=== PATIENT | female | born 1980 | race Caucasian/White ===

== ENCOUNTER 2025-09-22 12:43 | Outpatient (OUT) | payer BC, SELFPAY ==
--- OUTSIDE RECORDS SUMMARY | 2025-09-15 09:15 | XMS_ITS | Encounter Summary ---
Author Organization [facility] Address [address], [address] [place] [address] Care Team Providers Care Plasma Center Nurse Name Role Phone José Luis Maurice MD Primary Care Provider [phone] Reason for Referral * Other (Routine) - AuthorizedSpecialtyDiagnoses / ProceduresReferred By Contact Referred To ContactRadiology Diagnoses Screening mammogram, encounter for Procedures [facility] EDILSON DIGITAL SCREEN BILATERAL Indira Dillon APRN - CNM [address] [place] [address] [address] [place] [address] Phone: tel: fax: Referral IDStatusReasonStart DateExpiration DateVisits RequestedVisits [id number]/12/[id number] Reason for Visit * ReasonCommentsGynecologic ExamYearly exam. Last pap 09/09/2024 negative, HPV not detected. C/O abdominal cramps off and on, symptoms prior to and after period. Encounter Details DateTypeDepartmentCare Team (Latest Contact Info)Uvwfbqpvewl00/12/2025 9:15 AM ESTOffice Visit [facility] Part of [address] [place] [address] Indira Dillon APRN - CNM [address] [place] [address] [address] [place] [address] Encounter for annual routine gynecological examination (Primary Dx); Screening mammogram, encounter for; Abdominal cramps Social History Tobacco UseTypesPacks/DayYears UsedDateSmoking Tobacco: FormerSmokeless Tobacco: NeverAlcohol UseStandard Drinks/WeekCommentsNot Currently0 (1 standard drink = 0.6 oz pure alcohol)rarelyOverall Financial Resource Strain (CARDIA)AnswerDate RecordedHow hard is it for you to pay for the very basics like food, housing, medical care, and heating?Not hard at all09/09/2024HQ-2AnswerDate RecordedPHQ-9 Total Stufe26711/15/2024PRAPARE - TransportationAnswerDate RecordedLack of Transportation (Medical)Not on file09/09/2024In the past 12 months, has lack of transportation kept you from meetings, work, or from getting things needed for daily living?No09/09/2024Housing Stability Vital SignAnswerDate RecordedIn the last 12 months, was there a time when you were not able to pay the mortgage or rent on time?No09/15/2025In the past 12 months, how many times have you moved where you were living?t any time in the past 12 months, were you homeless or living in a [place] (including now)?No09/15/2025Hunger Vital Sign AnswerDate RecordedWithin the past 12 months, you worried that your food would run out before you got the money to buymore.Never true09/15/2025Within the past 12 months, the food you bought just didn't last and you didn't have money to get more.Never true09/15/2025PRAPARE - TransportationAnswerDate RecordedIn the past 12 months, has lack of transportation kept you from medical appointments or from getting medications?No09/15/2025In the past 12 months, has lack of transportation kept you from meetings, work, or from getting things needed for daily living?No09/15/2025HC UtilitiesAnswerDate RecordedIn the past 12 months has the electric, gas, oil, or water company threatened to shut off services in your home?No09/15/2025CommentsNoSex and Gender InformationValueDate RecordedSex Assigned at BirthNot on fileLegal NviZegaeq22/13/2013 1:22 AM EST Gender IdentityNot on fileSexual OrientationNot on filedocumented as of this encounter Last Filed Vital Signs Vital SignReadingTime TakenCommentsBlood Jlmnxege064/7009/15/2025 9:23 AM EST Pulse--Temperature--Respiratory Rate--Oxygen Saturation--Inhaled Oxygen Concentration--Sstkpt39.4 kg (181 lb 9.6 oz)09/15/2025 9:23 AM LGFIdfdiq601.1 cm (5' 5 )09/15/2025 9:23 AM ESTBody Mass Index30.22111/15/2024 9:23 AM EST documented in this encounter Progress Notes * Indira Dillon, LINE DANCER - CNM - 09/15/2025 9:31 AM EST YEARLY PHYSICAL Date of service: 09/15/2025 Ese Arndt Is a 45 y.o. , female PT's PCP is: José Luis Maurice MD : 1980 Subjective: Patient's last menstrual period was 09/04/2025. Are your menses regular: yes OB History Para Term AB Living 4 4 4 4 SAB IAB Ectopic Molar Multiple Live Births # Outcome Date GA Lbr Simón/2nd Weight Sex Type Anes PTL Lv 4 Term 2005 40w0d M Vag-Spont 3 Term 2004 40w0d M Vag-Spont 2 Term 2002 40w0d M Vag-Spont 1 Term 1996 40w0d M Vag-Spont Social History Tobacco Use Smoking Status Former Smokeless Tobacco Never Social History Substance and Sexual Activity Alcohol Use Not Currently Comment: rarely Family History Problem Relation Age of Onset Diabetes Mother oral medication and diet control High Blood Pressure Mother Obesity Mother High Cholesterol Mother Thyroid Disease Mother Deep Vein Thrombosis Mother Heart Failure Father stents High Cholesterol Sister Thyroid Disease Sister Cancer Sister brain tumor Heart Failure Maternal Grandmother copd, stents Other Other MGGM breast cancer. No family h/ oovarian cancer. Any family history of breast or ovarian cancer: No Any family history of blood clots: No Allergies: Patient has no known allergies. Current Outpatient Medications: Multiple Vitamins-Minerals (THERAPEUTIC MULTIVITAMIN-MINERALS) tablet, Take 1 tablet by mouth daily, Disp: , Rfl: Social History Substance and Sexual Activity Sexual Activity Yes Partners: Male control/protection: Surgical, Female Sterilization Any bleeding or pain with intercourse: No Last Yearly date: 09/09/2024 Last pap date : Date of last Cervical Cancer screen (HPV or PAP): 09/09/2024 results: negative Last HPV date and results: 09/09/2024 negative Has pt ever had an abnormal:No IF yes result and date: never Mammogram Result (most recent): No results found for this or any previous visit from the past 3650 days. 2020 [place] DEXA Result (most recent): No results found for this or any previous visit from the past 3650 days. Last colorectal screen- type:never date never results never Do you do self breast exams: Yes Pt requests jr. systems administrator: No Past Medical History: Diagnosis Date Migraines Thyroid disease hypothyroidism Past Surgical History: Procedure Laterality Date DILATION AND CURETTAGE OF UTERUS N/A 02/13/2021 DILATATION AND CURETTAGE HYSTEROSCOPY CAUTERY ABLATION-NOVASURE performed by Mary Lou Dickerson DO at [facility] OR ENDOMETRIAL ABLATION INTRAUTERINE DEVICE REMOVAL N/A 02/13/2021 UTERUS IUD REMOVAL performed by Mary Lou Dickerson DO at [facility] OR SALPINGECTOMY Bilateral SALPINGECTOMY Bilateral 02/13/2021 SALPINGECTOMY LAPAROSCOPIC performed by Mary Lou Dickerson DO at [facility] OR THROAT SURGERY salivary stone Family History Problem Relation Age of Onset Diabetes Mother oral medication and diet control High Blood Pressure Mother Obesity Mother High Cholesterol Mother Thyroid Disease Mother Deep Vein Thrombosis Mother Heart Failure Father stents High Cholesterol Sister Thyroid Disease Sister Cancer Sister brain tumor Heart Failure Maternal Grandmother copd, stents Other Other MGGM breast cancer. No family h/ oovarian cancer. Chief Complaint Patient presents with Gynecologic Exam Yearly exam. Last pap 09/09/2024 negative, HPV not detected. C/O abdominal cramps off and on, symptoms prior to and after period. PE: Vital Signs Blood pressure 126/70, height 1.651 m (5' 5 ), weight 82.4 kg (181 lb 9.6 oz), last menstrual period 09/04/2025, not currently . Estimated body mass index is 30.22 kg/m?? as calculated from the following: Height as of this encounter: 1.651 m (5' 5 ). Weight as of this encounter: 82.4 kg (181 lb 9.6 oz). Labs: Results for orders placed or performed in visit on 09/15/25 POCT Urinalysis Dipstick no Micro Result Value Ref Range Color, UA pale yellow Clarity, UA clear Glucose, UA POC negative mg/dL Bilirubin, UA negative Ketones, UA negative mg/dL Spec Grav, UA 1.010 Blood, UA POC trace pH, UA 7.0 Protein, UA POC negative mg/dL Urobilinogen, UA 0.2 mg/dL Leukocytes, UA negative Nitrite, UA negative PHQ-9 Total Score: 0 (09/15/2025 9:29 AM) NURSE: Sade TAFOYA HPI: here for annual farmworkers exam, c/o some pelvic pain, feels it is cycle related Review of Systems Constitutional: Negative. HENT: Negative for congestion. Respiratory: Negative for shortness of breath. Cardiovascular: Negative for chest pain. Gastrointestinal: Negative for abdominal pain. Genitourinary: Negative for dysuria. Musculoskeletal: Negative for back pain. Skin: Negative for rash. Neurological: Negative for headaches. Psychiatric/Behavioral: The patient is not nervous/anxious. Objective Lymphatic: no lymphadenopathy Heent: negative Cor: regular rate and rhythm, no murmurs Pul:clear to auscultation bilaterally- no wheezes, rales or rhonchi, normal air movement, no respiratory distress GI: Abdomen soft, non-tender. BS normal. No masses, No organomegaly Extremities: normal strength, tone, and muscle mass Breasts: Breast:normal appearance, no masses or tenderness Pelvic Exam: GENITAL/URINARY: External Genitalia: General appearance; normal, Hair distribution; normal, Lesions absent Urethral Meatus: Size normal, Location normal, Lesions absent, Prolapse absent Urethra: Fullness absent, Masses absent Bladder: Fullness absent, Masses absent, Tenderness absent, Cystocele absent Vagina: General appearance normal, Estrogen effect normal, Discharge absent, Lesions absent, Pelvicsupport normal Cervix: General appearance normal, Lesions absent, Discharge absent, Tenderness absent, Enlargementabsent, Nodularity absent Uterus: Size normal, Tenderness absent Adenexa: Masses absent, Tenderness absent Anus/Perineum: Lesions absent and Masses absent Assessment and Plan Assessment & Plan Screening mammogram, encounter for wellness Orders: [facility] ED[facility] DIGITAL SCREEN BILATERAL; Future Abdominal cramps Chronic, not at goal (unstable), continue current plan pending work up below Orders: POCT Urinalysis Dipstick no Micro Urinalysis; Future Culture, Urine; Future Encounter for annual routine gynecological examination wellness Return for farmworkers sono immediately following next menses. I am having Ese Arndt maintain her therapeutic multivitamin-minerals. She was also counseled on her preventative health maintenance recommendations and follow-up. There are no Patient Instructions on file for this visit. BRIGID Oneill CNM,09/15/2025 9:51 AM documented in this encounter Plan of Treatment DateTypeDepartmentCare Team (Latest Contact Info)Mnikzpwxqed09/23/2025 11:00 AM ESTAncillary Procedure [facility] Part [address] [place] [id number] Housekeeping Staff/us09/21/2026 9:45 AM ESTOffice Visit [facility] [address] [place], [place] [id number] Indira Dillon APRN - CNM [address] [place] [address] [address] [place], [place] [id number] AnnualNameTypePriorityAssociated DiagnosesOrder ScheduleMAM EDILSON DIGITAL SCREEN BILATERALImagingRoutine Screening mammogram, encounter for Expected: 09/15/2025, Expires: 11/15/2026documented as of this encounter Procedures Procedure NamePriorityDate/TimeAssociated DiagnosisCommentsPOCT URINALYSIS VWSUQHUGJcthjhr20/12/2025 9:48 AM EST Abdominal cramps documented in this encounter Results * POCT Urinalysis Dipstick no Micro (09/15/2025 9:48 AM EST)ComponentValueRef RangeTest MethodAnalysis TimePerformed AtPathologist SignatureColor, UApale yellowClarity, UAclearGlucose, UA POCnegativemg/dLBilirubin, UAnegative Ketones, UAnegativemg/dLSpec Grav, UA1.010Blood, UA POCtracepH, UA7.0Protein, UA POCnegativemg/dLUrobilinogen, UA0.2mg/dLLeukocytes, UAnegativeNitrite, UA negativeSpecimen (Source)Anatomical Location / LateralityCollection Method / VolumeCollection TimeReceived Time09/15/2025 9:48 AM EST Narrative Authorizing ProviderResult TypeResult StatusSubeatris VALLESOINT OF CARE TEST ORDERABLESFinal Result * Culture, Urine (09/15/2025 9:40 AM EST)ComponentValueRef RangeTest Method Analysis TimePerformed AtPathologist SignatureSpecimen Description.CLEAN CATCH URINE09/15/2025 9:40 AM [facility] LABSpecial Requests Site: Urine09/15/2025 9:40 AM [facility] LABCultureNO WSKNAA7409/15/2025 9:40 AM [facility] LABORATORIESSpecimen (Source)Anatomical Location / LateralityCollection Method / VolumeCollection TimeReceived Time UrineURINE SPECIMEN / Jnpywhs5009/15/2025 9:40 AM EST09/15/2025 11:37 AM EST Narrative Authorizing ProviderResult TypeResult StatusSubeatris Martinez CNM MICROBIOLOGY - GENERAL ORDERABLESFinal ResultPerforming OrganizationAddress City/State/ZIP CodePhone Number [facility] [address] [place] [address], [facility] [phone] [facility] HitchedPic [facility] [place] [id number], [facility] [phone] * (ABNORMAL) Urinalysis (09/15/2025 9:40 AM EST)ComponentValueRef RangeTest MethodAnalysis TimePerformed AtPathologist SignatureColor, UAYellowYellow 09/15/2025 9:40 AM [facility] LABTurbidity UAClearClear 09/15/2025 9:40 AM [facility] LABGlucose, UrNEGATIVE NEGATIVE mg/dL09/15/2025 9:40 AM [facility] LABBilirubin, TrzpaNVWWEXOEFOONHACD19/12/2025 9:40 AM [facility] Ketones, UrineNEGATIVENEGATIVE mg/dL09/15/2025 9:40 AM [facility] LABSpecific [place], UA<1.005(L)1.010 - 1.2075409/15/2025 9:40 AM [facility] LABUrine TniIZOFQLUGQCYLHZFJ89/12/2025 9:40 AM [facility] LABpH, Urine7.05.0 - 9.011 9:40 AM [facility] LABProtein, UANEGATIVENEGATIVE mg/dL09/15/2025 9:40 AM [facility] LABUrobilinogen, UrineNormal0.0 - 1.0 EU/dL09/15/2025 9:40 AM [facility] LABNitrite, Urine UWKVAKZIGICYZVRT06/12/2025 9:40 AM [facility] Leukocyte Esterase, QigdnYEJKLVRAZDSWHXMK12/12/2025 9:40 AM [facility] LABSpecimen (Source)Anatomical Location / LateralityCollection Method / VolumeCollection TimeReceived TimeUrineURINE SPECIMEN / Unknown 09/15/2025 9:40 AM EST09/15/2025 11:37 AM EST Narrative Authorizing ProviderResult TypeResult StatusSusan Daphney Dillon LINE DANCER - CNMURINE ORDERABLESFinal ResultPerforming OrganizationAddressCity/State/ZIP CodePhone Number [facility] [address] [place], [place] [address] [phone] documented in this encounter Visit Diagnoses Diagnosis Encounter for annual routine gynecological examination- Primary Screening mammogram, encounter for Abdominal cramps Abdominal pain, unspecified site documented in this encounter Care Teams Team MemberRelationshipSpecialtyStart DateEnd Date José Luis Maurice MD [address] [place] [address] PCP - GeneralFamily Rlsbawrv93/13/21documented as of this encounter
--- OUTSIDE RECORDS SUMMARY | 2025-09-15 10:58 | XMS_ITS | Encounter Summary ---
Author Organization [facility]adi White [facility] Address [address], [address] [place] [address] Care Team Providers Care Hybrid Technologist Name Role Phone José Luis Maurice MD Primary Care Provider [phone] Encounter Details DateTypeDepartmentCare Team (Latest Contact Info)Cvejtrwnnpq11/12/2025 10:58 AM EST - 09/15/2025 11:59 PM ESTHospital Encounter [facility] [address] [place], [place] [id number] Abdominal cramps Discharge Disposition: Home or Self Care Social History Tobacco UseTypesPacks/DayYears UsedDateSmoking Tobacco: FormerSmokeless Tobacco: NeverAlcohol UseStandard Drinks/WeekCommentsNot Currently0 (1 standard drink = 0.6 oz pure alcohol)rarelyOverall Financial Resource Strain (CARDIA)AnswerDate RecordedHow hard is it for you to pay for the very basics like food, housing, medical care, and heating?Not hard at all09/09/2024HQ-2AnswerDate RecordedPHQ-9 Total Selby91511/15/2024PRAPARE - TransportationAnswerDate RecordedLack of Transportation (Medical)Not on [...] were you homeless or living in a usp (including now)?No09/15/2025Hunger Vital Sign AnswerDate RecordedWithin the [...] RecordedIn the past 12 months has the [employer], [employer], oil, or water [employer] threatened to shut off services in your home?No09/15/2025CommentsNoSex and Gender InformationValueDate RecordedSex Assigned at BirthNot on fileLegal YstTkxsgp95/13/2013 1:22 AM EST Gender IdentityNot on fileSexual OrientationNot on filedocumented as of this encounter Medications at Time of Discharge MedicationSigDispense QuantityRefillsLast FilledStart DateEnd Date Multiple Vitamins-Minerals (THERAPEUTIC MULTIVITAMIN-MINERALS) tablet Take 1 tablet by mouth dailydocumented as of this encounter Plan of Treatment DateTypeDepartmentCare Team (Latest Contact Info)Kbbskskojfc43/23/2025 11:00 AM ESTAncillary Procedure [facility] Part of [address] [place] [address] Hand Stemmer/us09/21/2026 9:45 AM ESTOffice Visit [facility] Part [address] [place] [address] Indira Dillon, BRIGID - ALICIA [address] [place] [address] [place] [address] Annualdocumented as of this encounter Procedures Procedure NamePriorityDate/TimeAssociated DiagnosisCommentsURINALYSISRoutine 09/15/2025 9:40 AM EST Abdominal cramps CULTURE, FAMOWTytctra38/12/2025 9:40 AM EST Abdominal cramps documented in this encounter Results * (ABNORMAL) Urinalysis (09/15/2025 9:40 AM EST)ComponentValueRef RangeTest MethodAnalysis TimePerformed AtPathologist SignatureColor, UAYellowYellow 09/15/2025 9:40 AM [facility] LABTurbidity UAClearClear 09/15/2025 9:40 AM [facility] LABGlucose, UrNEGATIVE NEGATIVE mg/dL09/15/2025 9:40 AM [facility] LABBilirubin, NfeiyZEGZQRHENVLVRWKM69/12/2025 9:40 AM [facility] LAB Ketones, UrineNEGATIVENEGATIVE mg/dL09/15/2025 9:40 AM [facility] LABSpecific [place], UA<1.005(L)1.010 - 1.2440909/15/2025 9:40 AM [facility] LABUrine DouUWOBKFBAJMVQNLZN39/12/2025 9:40 AM [facility] LABpH, Urine7.05.0 - 9.011 9:40 AM [facility] LABProtein, UANEGATIVENEGATIVE mg/dL09/15/2025 9:40 AM [facility] LABUrobilinogen, UrineNormal0.0 - 1.0 EU/dL09/15/2025 9:40 AM [facility] LABNitrite, Urine JVJFRFXEDOAXHUJQ33/12/2025 9:40 AM [facility] Leukocyte Esterase, RiaiwWMIAMJPGJJDXTKOZ86/12/2025 9:40 AM [facility] LABSpecimen (Source)Anatomical Location / LateralityCollection Method / VolumeCollection TimeReceived TimeUrineURINE SPECIMEN / Unknown 09/15/2025 9:40 AM EST09/15/2025 11:37 AM EST Narrative Authorizing ProviderResult TypeResult StatusSubeatris GARRISONMURINE ORDERABLESFinal ResultPerforming OrganizationAddressCity/State/ZIP CodePhone Number [facility] [address] [phone] * Culture, Urine (09/15/2025 9:40 AM EST)ComponentValueRef RangeTest Method Analysis TimePerformed AtPathologist SignatureSpecimen Description.CLEAN CATCH URINE09/15/2025 9:40 AM [facility] LABSpecial Requests Site: Urine09/15/2025 9:40 AM [facility] LABCultureNO FTBYKY5509/15/2025 9:40 AM [facility] LABORATORIESSpecimen (Source)Anatomical Location / LateralityCollection Method / VolumeCollection TimeReceived Time UrineURINE SPECIMEN / Jrnpubt9409/15/2025 9:40 AM EST09/15/2025 11:37 AM EST Narrative Authorizing ProviderResult TypeResult StatusSubeatris Martinez CNM MICROBIOLOGY - GENERAL ORDERABLESFinal ResultPerforming OrganizationAddress City/State/ZIP CodePhone Number [facility] [address] [place] [address], [facility] [phone] [phone] documented in this encounter Visit Diagnoses Diagnosis Abdominal cramps Abdominal pain, unspecified site documented in this encounter Care Teams Team MemberRelationshipSpecialtyStart DateEnd Date José Luis Maurice MD [address] [place] [address] PCP - GeneralFamily Btkvwlut93/13/21documented as of this encounter
--- OUTSIDE RECORDS SUMMARY | 2025-09-22 12:46 | XMS_ITS | Clinical Summary ---
Author Organization [facility] Address [id number] [address] [place] [address] Care Team Providers Care Thermometer Maker Name Role Phone Unavailable Primary Care Provider Unavailabl e Social History Tobacco UseTypesPacks/DayYears UsedDateSmoking Tobacco: Never AssessedChildcare AnswerDate FifpshebUieztvhjgEurlctg50/12/2019EmploymentAnswerDate Recorded GvdenipumbNjivweu95/12/2019Purpose - LifeAnswerDate RecordedPurpose and direction in rjifJksmvsg76/11/2021CommentsUnknownSex and Gender InformationValueDate RecordedSex Assigned at BirthNot on fileLegal SexFemale 06/09/2015 11:34 AM EDTGender IdentityNot on fileSexual OrientationNot on file Plan of Treatment Health MaintenanceDue DateLast DoneCommentsDepression Hawtzjzou21/13/1994Tobacco Bhspldbdq08/13/1994Adult BMI Idlryphfn58/13/2000DTaP,Tdap and Td Vaccines (1 - Tdap)2001Pap Smear2003Influenza Zfndylv8907/05/2025 Medical Devices Not on file
--- OUTSIDE RECORDS SUMMARY | 2025-09-22 12:46 | XMS_ITS | Clinical Summary ---
Author Organization [facility] Address [address], [address] [place] [address] Care Team Providers Care Magnetic Grinder Operator Name Role Phone José Luis Maurice MD Primary Care Provider [phone] Allergies No known active allergies Medications MedicationSigDispense QuantityRefillsLast FilledStart DateEnd DateStatus Multiple Vitamins-Minerals (THERAPEUTIC MULTIVITAMIN-MINERALS) tablet Take 1 tablet by mouth dailyActive Active Problems ProblemNoted DateDiagnosed DateMenorrhagia with regular cycle Encounters DateTypeDepartmentCare DtpeFxgwytrrdax31/12/2025 10:58 AM EST - 09/15/2025 11:59 PM ESTHospital Encounter [facility] [address] [phone] Abdominal cramps Discharge Disposition: Home or Self Care09/15/2025 9:15 AM ESTOffice Visit [facility]YNECOLOGY Part of [facility] [address] [place] [address] Indira Dillon, UNDERWRITING CLERK - CNM Encounter for annual routine gynecological examination (Primary Dx); Screening mammogram, encounter for; Abdominal crampsfrom Last 3 Months Immunizations ImmunizationAdministration DatesNext DueTDaP, ADACEL (age 10y-64y), BOOSTRIX (age 10y+), IM, 0.5mL08/13/2016 Family History Medical HistoryRelationNameCommentsHeart FailureFatherstentsHeart Failure Maternal Grandmothercopd, stentsDeep Vein ThrombosisMotherDiabetesMotheroral medication and diet controlHigh Blood PressureMotherHigh CholesterolMother ObesityMotherThyroid DiseaseMotherOtherOtherMGGM breast cancer. No family h/ oovarian cancer.High CholesterolSister 1Thyroid DiseaseSister 1CancerSister 2 brain tumorRelationNameStatusCommentsFatherAliveMaternal GrandfatherDeceased Maternal GrandmotherDeceasedMotherAliveOtherOtherPaternal GrandfatherDeceased Paternal GrandmotherDeceasedSister 1AliveSister 2Deceased (Age 1212 years old)1/2 sister brain tumor Social History Tobacco UseTypesPacks/DayYears UsedDateSmoking Tobacco: FormerSmokeless Tobacco: NeverAlcohol UseStandard Drinks/WeekCommentsNot Currently0 (1 standard drink = 0.6 oz pure alcohol)rarelyOverall Financial Resource Strain (CARDIA)AnswerDate RecordedHow hard is it for you to pay for the very basics like food, housing, medical care, and heating?Not hard at all09/09/2024HQ-2AnswerDate RecordedPHQ-9 Total Iyrdh66411/15/2024PRAPARE - TransportationAnswerDate RecordedLack of Transportation (Medical)Not on [...] were you homeless or living in a penitentiary (including now)?No09/15/2025Hunger Vital Sign AnswerDate RecordedWithin the [...] InformationValueDate RecordedSex Assigned at BirthNot on fileLegal PotEqzzic41/13/2013 1:22 AM EST Gender IdentityNot on fileSexual OrientationNot on file Last Filed Vital Signs Vital SignReadingTime TakenCommentsBlood Oejsmwas765/7009/15/2025 9:23 AM EST Kmsgm7212 1:40 AM KQHVbhhczngtvn11.1 ??C (98.7 ??F)02/20/2021 1:40 AM EDTRespiratory Bsiv3498 1:40 AM EDTOxygen Znmvjvvkks97%02/20/2021 3:45 AM EDTInhaled Oxygen Concentration--Inydzy75.4 kg (181 lb 9.6 oz)09/15/2025 9:23 AM UENLecspg591.1 cm (5' 5 )09/15/2025 9:23 AM ESTBody Mass Index30.22111/15/2024 9:23 AM EST Plan of Treatment DateTypeDepartmentCare Team (Latest Contact Info)Ahqlhmpmvxb01/23/2025 11:00 AM ESTAncillary Procedure [facility] Part of [address] [place] [phone] Regional Environmental Manager/us09/21/2026 9:45 AM ESTOffice Visit [facility] & GYNECOLOGY Part [address] [place] [address] Indira Dillon APRN - ALICIA [address] [place] [address] [place] [address] AnnualHealth MaintenanceDue DateLast DoneCommentsVaricella vaccine (1 of 2 - 13+ 2-dose series)1995Hepatitis C nkjugr3505/16/2000Hepatitis B vaccine (1 of 3 - 19+ 3-dose series)2001Diabetes douygx7305/16/2017Breast cancer screen 05/16/20220668Rytxix29/13/2022Flu vaccine (#1)06/04/2025OVID-19 Vaccine (1 - 2023- season)2025DTaP/Tdap/Td vaccine (2 - Td or Tdap)/08/2016 Depression Euvvlq85/10/2025, 09/15/2025Pap smear/04/2024, 08/16/2021, 08/18/2019, Additional history existsCervical cancer screen 09/09/2029HPV (without or with Pap)/04/2024HIV screenCompleted 12/05/2005HPV vaccine (No Doses Required)CompletedHepatitis A vaccineAged OutNo longer eligible based on patient's age to complete this topicHib vaccineAged Out No longer eligible based on patient's age to complete this topicMeningococcal (ACWY) vaccineAged OutNo longer eligible based on patient's age to complete this topicMeningococcal B vaccineAged OutNo longer eligible based on patient's age to complete this topicPneumococcal 0-49 years VaccineAged OutNo longer eligible based on patient's age to complete this topicPolio vaccineAged OutNo longer eligible based on patient's age to complete this topic Procedures Procedure NamePriorityDate/TimeAssociated DiagnosisCommentsPOCT URINALYSIS OSKQUFKYTqzzqod35/12/2025 9:48 AM EST Abdominal cramps BUNBZSPCCXPdpxatd56/12/2025 9:40 AM EST Abdominal cramps CULTURE, XHRDANkgmrbm41/12/2025 9:40 AM EST Abdominal cramps HUMAN PAPILLOMAVIRUS (HPV) DNA PROBE THIN PREP HIGH NGSBOltwvpe34/06/2024 12:00 AM EST DIRECTOR RISK VOFMWKYBTqsgtkj06/06/2024 12:00 AM EST from Last 3 Months or Most Recently Relevant to Health Maintenance Results * POCT Urinalysis Dipstick no Micro (09/15/2025 9:48 AM EST)ComponentValueRef RangeTest MethodAnalysis TimePerformed AtPathologist SignatureColor, UApale yellowClarity, UAclearGlucose, UA POCnegativemg/dLBilirubin, UAnegative Ketones, UAnegativemg/dLSpec Grav, UA1.010Blood, UA POCtracepH, UA7.0Protein, UA POCnegativemg/dLUrobilinogen, UA0.2mg/dLLeukocytes, UAnegativeNitrite, UA negativeSpecimen (Source)Anatomical Location / LateralityCollection Method / VolumeCollection TimeReceived Time09/15/2025 9:48 AM EST Narrative Authorizing ProviderResult TypeResult StatusSusan Daphney Dillon UNDERWRITING CLERK - CNMPOINT OF CARE TEST ORDERABLESFinal Result * (ABNORMAL) Urinalysis (09/15/2025 9:40 AM EST)ComponentValueRef RangeTest MethodAnalysis TimePerformed AtPathologist SignatureColor, UAYellowYellow 09/15/2025 9:[address] [facility] LABTurbidity UAClearClear 09/15/2025 9:[address] [facility] LABGlucose, UrNEGATIVE NEGATIVE mg/dL09/15/2025 9:[address] [facility] LABBilirubin, XhixvPXHJMRMCRNHFCJPR82/12/2025 9:[address] [facility] Ketones, UrineNEGATIVENEGATIVE mg/dL09/15/2025 9:[address] [facility] LABSpecific [place], UA<1.005(L)1.010 - 1.1518109/15/2025 9:40 AM [facility] LABUrine LsqIFLMKVZPANAVHDOU05/12/2025 9:[address] [facility] LABpH, Urine7.05.0 - 9.011 9:40 AM [facility] LABProtein, UANEGATIVENEGATIVE mg/dL09/15/2025 9:[address] [facility] LABUrobilinogen, UrineNormal0.0 - 1.0 EU/dL09/15/2025 9:[address] [facility] LABNitrite, Urine OLRPRPEYZMDZAWAF12/12/2025 9:[address] [facility] Leukocyte Esterase, BaylmXZNLXQXHWPEOOFIM57/12/2025 9:[address] [facility] LABSpecimen (Source)Anatomical Location / LateralityCollection Method / VolumeCollection TimeReceived TimeUrineURINE SPECIMEN / Unknown 09/15/2025 9:40 AM EST09/15/2025 11:37 AM EST Narrative Authorizing ProviderResult TypeResult StatusSusaindira Dillon APRN - BLADIMIRMURINE ORDERABLESFinal ResultPerforming OrganizationAddressCity/State/ZIP CodePhone Number [facility] [address] [place] [address] * Culture, Urine (09/15/2025 9:40 AM EST)ComponentValueRef RangeTest Method Analysis TimePerformed AtPathologist SignatureSpecimen Description.CLEAN CATCH URINE09/15/2025 9:[address] [facility] LABSpecial Requests Site: Urine09/15/2025 9:[address] [facility] LABCultureNO CBZKZS4209/15/2025 9:40 AM [facility] LABOR[facility]IESSpecimen (Source)Anatomical Location / LateralityCollection Method / VolumeCollection TimeReceived Time UrineURINE SPECIMEN / Jzeynki2209/15/2025 9:40 AM EST09/15/2025 11:37 AM EST Narrative Authorizing ProviderResult TypeResult StatusSusaindira Dillon APRN - CNM MICROBIOLOGY - GENERAL ORDERABLESFinal ResultPerforming OrganizationAddress City/State/ZIP CodePhone Number [facility] [address] [place] [address], [facility] [phone] [address] [place] [address] * Human papillomavirus (HPV) DNA probe thin prep high risk (09/09/2024 12:00 AM EST)ComponentValueRef RangeTest MethodAnalysis TimePerformed AtPathologist SignatureSpecimen DescriptionCERVICAL KWBEAZVM11/06/2024 12:00 AM ESTCureeoHPV Sample.THIN PREP09/09/2024 12:00 AM InvajoHPV, Genotype 16Not DetectedNot Pxqzsaqa63/06/2024 12:00 AM [facility] HPV, Genotype 18Not DetectedNot Zpwqymfk71/06/2024 12:00 AM InvajoHPV, High Risk OtherNot DetectedNot Stvmvdxf14/06/2024 12:00 AM [facility]HPV, Gvveuzvpiccvlk60/06/2024 12:00 AM InvajoComment: This test amplifies and detects DNA of 14 high-risk HPV types associated with cervical cancer and its precursor lesions (HPV types 16,18, 31, 33, 35, 39, 45, 51, 52, 56, 58, 59, 66, and 68). ? Sensitivity may be affected by specimen collection methods, stage of infection, and the presence of interfering substances. Results should be interpreted in conjunction with other available laboratory and clinical data. A negative high-risk HPV result does not exclude the possibility of future cytologic HSIL or underlying CIN2-3 or cancer. ? This test is intended for medical purposes only and is not valid for the evaluation of suspected sexual abuse or for other forensic purposes. Specimen (Source)Anatomical Location / LateralityCollection Method / Volume Collection TimeReceived TimeCERVICAL DJSBGEZK28/06/2024 Narrative Authorizing ProviderResult TypeResult StatusSusan Daphney Dillon UNDERWRITING CLERK - CN HEMATOLOGY ORDERABLESFinal ResultPerforming OrganizationAddressCity/State/ZIP CodePhone Number [facility] [address] [place] [address], [facility] [phone] [address] [place] [address], [facility] [phone] * DIRECTOR RISK Cytology (09/09/2024 12:00 AM EST)ComponentValueRef RangeTest Method Analysis TimePerformed AtPathologist SignatureCytology ReportPath Number: [id number] DIAGNOSIS Imaged ThinPrep Pap - Cervical (1 monolayer slide): Specimen Adequacy: ? Satisfactory for evaluation. ? - Endocervical/transformation zone component present. Descriptive Diagnosis: ? Negative for intraepithelial lesion or malignancy. ?? Cytotech Screener: ??EY Electronically Signed Out Charbel Vaz CT(ASCP) 09/22/2024 Procedure/Addendum HPV Procedure Report ? Date Ordered: ? 09/10/2024 ? Status: Signed Out ? Date Complete: ? 09/11/2024 ? By: System Interface ? Date Reported: ? 09/11/2024 ? Sample: ??HPV Type 16 ?Result: ?? Not Detected ?Ref Range: Not Detected Sample: ??HPV Type 18 ?Result: ?? Not Detected ?Ref Range: Not Detected Sample: ??Other High Risk HPV ?Result: ?? Not Detected ?Ref Range: Not Detected Sample: ??HPV Interp ?Result: ? Ref Range: This test amplifies and detects DNA of 14 high-risk HPV types associated with cervical cancer and its precursor lesions (HPV types 16,18, 31, 33, 35, 39, 45, 51, 52, 56, 58, 59, 66, and 68). ? Sensitivity may be affected by specimen collection methods, stage of infection, and the presence of interfering substances. Results should be interpreted in conjunction with other available laboratory and clinical data. A negative high-risk HPV result does not exclude the possibility of future cytologic HSIL or underlying CIN2-3 or cancer. ? This test is intended for medical purposes only and is not valid for the evaluation of suspected sexual abuse or for other forensic purposes. Performed at [address] [address] ([phone] ?? Source of Specimen: A: Imaged ThinPrep Pap - Cervical (1 monolayer slide) HPV Reflex?......................HPV Regardless Clinical History Endometrial ablation Z12.4 Encounter for screening for malignant neoplasm of cervix LMP: ??08/14/2024 Processing Lab: [address] [id number] Interpretation performed at [address] [phone] This Pap Test has been evaluated with the assistance of the ThinPrep Pap Test Imaging System. The Pap smear is a screening test primarily for squamous epithelial lesions, which is subject to both false negative and false positive results. Your patient should be reminded to consult you immediately if she experiences any suspicious signs or symptoms, regardless of her Pap smear result. GYNECOLOGIC CYTOLOGY REPORT Patient Name: MARY JO SALAMANCA. [facility] Rec: [id number] [facility] ??LABORATORIES CONSULTING PATHOLOGISTS [facility] [place] ANATOMIC PATHOLOGY [address] [place] [address]. ??[place], [place] [address] [facility] LABSSpecimen (Source)Anatomical Location / LateralityCollection Method / VolumeCollection TimeReceived Time CERVICAL APKBGQFR65 6:27 AM EST Narrative Authorizing ProviderResult TypeResult StatusSusan Daphney Dillon UNDERWRITING CLERK - CNM PATHOLOGY/CYTOLOGY ORDERABLESFinal ResultPerforming OrganizationAddress City/State/ZIP CodePhone Number [facility] [address] [phone] [facility] from Last 3 Months or Most Recently Relevant to Health Maintenance Insurance * Guarantor: Salamanca, Sheanna MAccount TypeRelation to PatientDate of BirthPhone Billing AddressPersonal/IuxjdiLxww1980 (Home) [address] [place] [address] * Guarantor: Mary Jo Salamancacount TypeRelation to PatientDate of BirthPhone Billing AddressPersonal/CksmvxLdeq1980 (Home) [address] [place] [address] Advance Directives * Full Code (Latest Code Status on File) Date ActivatedDate InactivatedComments02/13/2021 7:47 AM02/13/2021 12:58 PM Care Teams Team MemberRelationshipSpecialtyStart DateEnd Date José Luis Maurice MD [address] [place] [address] PCP - GeneralFamily Pltmkjfs06/13/21
--- NOTE | 2025-09-22 12:50 | MM_ITS ---
Patient Name: MARY JO SALAMANCA MR#: [id number] : 1980 Exam Date: 09/22/2025 Ordering Doctor: DR HARMONY ACOSTA [facility] RADIOLOGY REPORT PROCEDURE: MM TOMOSYNTHESIS SCREENING BI COMPARISON: MG MAMM SCREEN 3D VAISHNAVI CAD, 08/22/2022. MG MAMM VAISHNAVI DIAG W CAD DIG, 02/21/2016. INDICATIONS: Screening Calculator Name NCI Breast Cancer Risk Assessment Tool 5 Year Breast Cancer Risk 0.60% Lifetime Breast Cancer Risk 7.80% Personal Breast Cancer No Personal Ovarian Cancer No Treatments None Family Cancers Sister with brain tumor cancer at age 12; Grandfather-paternal with liver cancer at age 68; Grandfather-maternal with stomach cancer at age 70. LOCATION: [facility] BREAST COMPOSITION: The breasts are heterogeneously dense, which may obscure small masses. FINDINGS: RIGHT BREAST: No significant suspicious finding. LEFT BREAST: No significant suspicious finding. Benign-appearing calcifications are present. DIAGNOSTIC CATEGORY 2--BENIGN FINDING. NO CHANGE FROM COMPARISON. RECOMMENDATIONS: ROUTINE MAMMOGRAM AND CLINICAL EVALUATION IN 12 MONTHS. Dictated by: Ted Ambriz MD on 09/22/2025 at 16:39 Approved by: Ted Ambriz MD on 09/22/2025 at 16:44
== END 2025-09-22 12:44 | disposition home or self-care (01) ==
LOC: MAMMO 12:43
PROVIDERS: Visit Provider Midwife
DX: Z12.31 Encounter for screening mammogram for malignant neoplasm of breast (principal); Z80.0 Family history of malignant neoplasm of digestive organs; Z80.8 Family history of malignant neoplasm of other organs or systems
CPT/HCPCS: 77063; 77067